=== PATIENT | male | born 1970 | race Two or more races ===

== ENCOUNTER 2017-12-05 10:45 | Outpatient (CLI) | payer OTHER | END 2017-12-05 11:20 | disposition home or self-care (01) | LOC: LAB 10:45 | DX: I10 Essential (primary) hypertension (principal); J11.1 Influenza due to unidentified influenza virus with other respiratory manifestations ==

== ENCOUNTER 2020-06-20 12:40 | Outpatient (CLI) | payer OTHER | END 2020-06-20 13:01 | disposition home or self-care (01) | LOC: RAD 12:40 | PROVIDERS: ATTEND General Practice | DX: R05 Cough (principal) ==